=== PATIENT | male | born 1960 ===

== ENCOUNTER 2024-01-19 14:23 | Outpatient (CLI) | payer MEDICARE, SELFPAY | END 2024-01-19 14:24 | disposition home or self-care (01) | LOC: ANHBWCAUD 14:24 | PROVIDERS: PCP Registered Nurse; Visit Provider Registered Nurse | DX: H90.3 Sensorineural hearing loss, bilateral (principal); H93.11 Tinnitus, right ear | CPT/HCPCS: 92557; 92567 ==